=== PATIENT | male | born 1955 | race Caucasian/White ===

== ENCOUNTER 2024-06-10 12:02 | Emergency (ER) | payer MEDICARE, OTHER, SELFPAY ==
[2024-06-10 12:10] VITALS: BP 136/86
[2024-06-10 12:37] LABS: % Basophils 0.4 % (0-2); % Eosinophils 2.3 % (0-6); % Immature Granulocytes 0.3 % (0-0.5); % Lymphocytes 22.6 % (20.5-51.1); % Monocytes 5.8 % (1.7-9.3); % Neutrophils 68.6 % (42.2-75.2); Absolute Eosinophils 0.2 10^3/uL (0-0.7); Absolute Lymphocytes 1.6 10^3/uL (1.2-3.4); Absolute Monocytes 0.4 10^3/uL (0.1-0.6); Absolute Neutrophils 4.8 10^3/uL (1.4-6.5); Hematocrit 42.4 % (39.0-52.0); Hemoglobin 14.7 g/dL (13.0-18.0); Mean Corp Hgb Conc. 34.7 g/dL (33.0-37.0); Mean Corpuscular Hgb 32.1 pg (27.0-31.0); Mean Corpuscular Volume 92.6 fL (80.0-94.0); Mean Platelet Volume 10.1 fL (7.4-10.4); Nucleated Red Blood Cells % 0 % (-); Platelet Count 255 10^3/uL (130-400); Red Blood Cell Count 4.58 10^6/uL (4.70-6.10); Red Cell Dist. Width 13.1 % (11.5-14.5); White Blood Cell Count 6.9 10^3/uL (4.8-10.8)
[2024-06-10 13:01] LABS: ALT (SGPT) 22 U/L (0-50); AST (SGOT) 31 U/L (17-59); Albumin 4.3 g/dl (3.5-5.0); Alkaline Phosphatase 58 U/L (38-126); Blood Urea Nitrogen 21 mg/dl (9-20); Calcium 9.9 mg/dl (8.4-10.2); Carbon Dioxide 25 mmol/L (22-30); Chloride 103 mmol/L (98-107); Glucose 153 mg/dl (70-99); Potassium 4.2 mmol/L (3.5-5.1); Sodium 138 mmol/L (135-145); Total Bilirubin 0.6 mg/dl (0.2-1.3); Total Protein 6.7 g/dl (6.3-8.2); eGFR > 60.00
[2024-06-10 13:04] LABS: Troponin I 0.026 ng/ml
--- NOTE | 2024-06-10 14:11 | ED.GENMED ---
History of Present Illness
<Loretta Rea MD, Resident - Last Filed: 06/10/24 15:33>
General
Chief Complaint: Fatigue
Source: patient
Exam Limitations: none
Time Seen by Provider: 06/10/24 13:31
History of Present Illness
History of Present Illness:
69-year-old male with history of hypertension, hypercholesterolemia, glaucoma, elevated TSH, anxiety who presented to the ED with fatigue, nausea and impaired balance x 2 days. Chest pain is non-pleuritic and nonpostural. He called his PCP today
concerning extreme fatigue and mild chest pain radiating towards bilateral shoulders and was encouraged to go to the ED.
He has had anxiety with vague, mild chest discomfort for about a month, usually relieved by deep breathing exercises but current presentation was persistent. Recently switched from buspirone to Zoloft 5 days ago for anxiety. He had thyroid function
tests today ordered by his PCP and is currently pending results.
Denies any palpitations, cough, bites, sick contacts, recent travel, joint/muscle pain or stiffness. No fever/chills/sweats, headaches, abdominal pain or urinary symptoms.
Past History
<Loretta Rea MD, Resident - Last Filed: 06/10/24 15:33>
Past History
ED Past Medical History: HTN, Hypercholesterolemia, Psychiatric (anxiety) and Other (glaucoma)
ED Past Surgical History: None
Social History
Tobacco: Non-smoker
Alcohol: Daily (one beer or one glass of wine)
Drug: None
Personal:
Living: with family
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
Review of Systems
<Loretta Rea MD, Resident - Last Filed: 06/10/24 15:33>
Review of Systems
Allergies reviewed?: Yes
All Other Systems: ROS reviewed and negative except as documented in HPI and ROS
Phy Exam
<Loretta Rea MD, Resident - Last Filed: 06/10/24 15:33>
Physical Exam
Physical Exam:
General: Appears comfortable, in no apparent distress
Chest: No rash, nontender chest wall, symmetric
Heart: Regular rate and rhythm, no murmurs rubs or gallops, no lower extremity edema
Lung: Clear to auscultation bilaterally, no wheezes/rales/rhonchi. No respiratory distress
Abdomen: Soft, nontender, nondistended. Normal bowel sounds, no rebound or guarding. No CVA tenderness
Course
<Loretta Rea MD, Resident - Last Filed: 06/10/24 15:33>
Orders/Labs/Results
Orders:
Orders
06/10/24 12:09
Electrocardiogram (*1) Urgent
Reason for Study: Fatigue / Weakness
06/10/24 12:10
EKG- Treatment ONCE
06/10/24 12:26
Complete Blood Count/With Diff Urgent
Comprehensive Metabolic Panel Urgent
Troponin I Urgent
Abnormal Lab Results
06/10/24
12:26
RBC 4.58 L 10^6/uL
(4.70-6.10)
MCH 32.1 H pg
(27.0-31.0)
BUN 21 H mg/dl
(9-20)
Glucose 153 H mg/dl
(70-99)
06/10/24 12:26
06/10/24 12:26
Vital Signs
Initial and Last Documented VS:
Initial Vital Signs
Temp Pulse Resp BP Pulse Ox
97.8 F 73 18 136/86 97
06/10/24 12:10 06/10/24 12:10 06/10/24 12:10 06/10/24 12:10 06/10/24 12:10
Last Documented Vital Signs
Temp Pulse Resp BP Pulse Ox
97.8 F 51 17 137/81 97
06/10/24 12:10 06/10/24 16:09 06/10/24 16:09 06/10/24 16:09 06/10/24 12:10
<Jasson H. DO Adilson - Last Filed: 06/10/24 19:55>
Orders/Labs/Results
Orders:
Orders
06/10/24 12:09
Electrocardiogram (*1) Urgent
Reason for Study: Fatigue / Weakness
06/10/24 12:10
EKG- Treatment ONCE
06/10/24 12:26
Complete Blood Count/With Diff Urgent
Comprehensive Metabolic Panel Urgent
Troponin I Urgent
Abnormal Lab Results
06/10/24
12:26
RBC 4.58 L 10^6/uL
(4.70-6.10)
MCH 32.1 H pg
(27.0-31.0)
BUN 21 H mg/dl
(9-20)
Glucose 153 H mg/dl
(70-99)
06/10/24 12:26
06/10/24 12:26
Vital Signs
Initial and Last Documented VS:
Initial Vital Signs
Temp Pulse Resp BP Pulse Ox
97.8 F 73 18 136/86 97
06/10/24 12:10 06/10/24 12:10 06/10/24 12:10 06/10/24 12:10 06/10/24 12:10
Last Documented Vital Signs
Temp Pulse Resp BP Pulse Ox
97.8 F 51 17 137/81 97
06/10/24 12:10 06/10/24 16:09 06/10/24 16:09 06/10/24 16:09 06/10/24 12:10
<Loretta Rea MD, Resident - Last Filed: 06/10/24 15:33>
MDM/Problems Addressed
Differential Diagnosis Includes:
Medication adverse effect, thyroid dysfunction, arrhythmia, [place], unstable angina
MDM/Problems Addressed:
Vitals, EKG, troponin, chemistries and CBC are normal. Pt stable in no acute distress and reports improved symptoms in ED. Will discharge to home at this time with no changes to medication, to follow up with cardiology for possible stress test if
warranted, and follow up with PCP shortly.
<Loretta Rea MD, Resident - Last Filed: 06/10/24 15:33>
*Critical Care Note
Total Time (30-74mins, 75-104mins- exclusive of procedures): Not Applicable
<Jasson De Anda, - Last Filed: 06/10/24 19:55>
*Pulse Oximetry
Patient hypoxic: no
ED Attending Note
<Loretta Rea MD, Resident - Last Filed: 06/10/24 15:33>
-
Portions of this chart may have been created with voice recognition software.� Occasional wrong word or��sound alike� substitutions may have occurred due to the inherent limitations of voice recognition software.
<Jasson De Anda, - Last Filed: 06/10/24 19:55>
ED Attending Note
Patient seen and examined by attending physician: Yes
I performed a history and physical exam of patient and discussed management with resident, I reviewed resident's note and agree with documented findings and plan of care.: Yes
ED Attending Note:
I agree with Dr. Rea's note.
Patient presents with fatigue, weakness and vague chest discomfort today. Has been having the symptoms for the past several days. He is concerned may be related to starting Zoloft. Patient does endorse some anxiety/depression which might be
contributing as well. Currently he is asymptomatic
General: Awake, Alert, Oriented X3. No acute distress.
Vitals: unremarkable
Head: Atraumatic
Eyes: Pupils equal, EOMI
Throat: Airway intact, no exudates
Neck: Trachea midline
Lungs: Clear and equal b/l
Heart: Regular rate, no murmurs
Abd: Soft, Nontender, No pulsatile mass
Neuro: Nonfocal
Skin: Warm, dry, no rash
Extremities: pulses equal b/l, no edema
Suspect symptoms are related to medication initiation but encourage patient to continue the medication as he is likely to accommodate tomorrow. Will have her follow with cardiology for outpatient workup because of the episode of chest discomfort
however my suspicion for acute coronary syndrome is very low
Discharge Plan
Departure
Patient Disposition: Home (Routine Discharge)
Date of Disposition: 06/10/24
Time of Disposition: 15:21
Patient with high blood pressure during this ER visit?: Yes
Discharge Problem:
Fatigue, chest pain
Instructions: Chest Pain CBC Follow Up, BLOOD PRESSURE
Prescriptions:
No Action
hydrocodone-acetaminophen 1 TABLET tablet
1 tab PO Q4HPRN PRN (Reason: pain) Qty: 10 0RF
cyclobenzaprine 10 MG tablet
10 mg PO TIDPRN PRN (Reason: back spasm/tightness/pain) Qty: 30 0RF
ibuprofen 800 MG tablet
800 mg PO TIDPRN PRN (Reason: pain) Qty: 30 0RF
Referrals:
Carolynn Rodriguez MD [Family Provider] -
Interventions
Interventions:
*Risk Screen - Suicide Last Done: 06/10/24 12:10
*General Assessment Last Done: 06/10/24 12:10
*Neglect/Abuse Screening Last Done: 06/10/24 12:10
*Nursing Disposition Last Done: 06/10/24 16:09
Discharge Date and Time
Discharge Date/Time: 06/10/24 16:09
Print Language: MONGOLIAN
[2024-06-10 16:07] VITALS: BP 137/81
[2024-06-10 16:09] VITALS: BP 137/81
== END 2024-06-10 16:09 | disposition home or self-care (01) ==
LOC: EMR 12:02
PROVIDERS: Emergency Medicine; EMERGENCY PHYSICIAN Emergency Medicine; FAMILY PHYSICIAN Family Medicine
DX: R53.83 Other fatigue (principal); R07.89 Other chest pain; I10 Essential (primary) hypertension; E78.00 Pure hypercholesterolemia, unspecified; F41.9 Anxiety disorder, unspecified; H40.9 Unspecified glaucoma
CPT/HCPCS: 99283; 80053; 84484; 85025; 93005

== ENCOUNTER → 2024-06-12 10:17 | Outpatient (REF) | payer MEDICARE, OTHER, SELFPAY | LOC: RCS 10:17 | PROVIDERS: ATTENDING PHYSICIAN Internal Medicine Cardiovascular Disease; FAMILY PHYSICIAN Family Medicine | DX: I77.810 Thoracic aortic ectasia (principal); I34.0 Nonrheumatic mitral (valve) insufficiency | CPT/HCPCS: 93306 ==

== ENCOUNTER → 2024-06-17 13:27 | Outpatient (REF) | payer MEDICARE, OTHER, SELFPAY | LOC: RCS 13:27 | PROVIDERS: ATTENDING PHYSICIAN Internal Medicine Cardiovascular Disease; PRIMARYCARE PHYSICIAN Family Medicine | DX: R94.31 Abnormal electrocardiogram [ECG] [EKG] (principal); I51.7 Cardiomegaly; R07.2 Precordial pain | CPT/HCPCS: 93017; 93350 ==

== ENCOUNTER 2025-08-11 06:25 | Day surgery (SDC) | payer MEDICARE, OTHER, SELFPAY | END 2025-08-11 11:34 | disposition home or self-care (01) | LOC: GI 06:25 | PROVIDERS: ATTENDING PHYSICIAN Internal Medicine Gastroenterology; FAMILY PHYSICIAN Family Medicine | DX: D50.9 Iron deficiency anemia, unspecified (principal); K44.9 Diaphragmatic hernia without obstruction or gangrene; K22.2 Esophageal obstruction; K64.8 Other hemorrhoids; K57.30 Diverticulosis of large intestine without perforation or abscess without bleeding | CPT/HCPCS: 43239; 45378; 88305 ==